=== PATIENT | female | born 1950 | race Caucasian/White ===

== ENCOUNTER 2017-11-27 11:05 | Outpatient (CLI) | payer OTHER | END 2017-11-27 11:22 | disposition home or self-care (01) | LOC: LAB 11:05 → EKG 11:05 | DX: I10 Essential (primary) hypertension (principal) ==

== ENCOUNTER 2017-12-05 06:10 | Day surgery (SDC) | payer OTHER | END 2017-12-05 11:06 | disposition home or self-care (01) | LOC: CIR.AMB 06:10 | DX: G56.02 Carpal tunnel syndrome, left upper limb (principal) ==

== ENCOUNTER 2025-06-17 07:00 | Day surgery (SDC) | payer OTHER ==
[2025-06-11 09:05] VITALS: BP 170/70
[2025-06-11 09:05] LABS: BASO % 0.3 % (0.1-1.2); EOS # 0.41 (0.04-0.54); EOS % 4.4 % (0.7-7.0); LYMPH # 2.16 (1.18-3.74); LYMPH % 23.4 % (19.3-53.1); MEAN PLATELET VOLUME 9.50 fl (9.4-12.4); MONO # 0.88 (0.24-0.82); MONO % 9.5 % (4.7-12.5); NEUT # 5.72 (1.56-6.13); NEUT % 62.0 % (34.0-71.1); RED CELL DISTRIBUTION WIDTH 13.7 % (11.6-14.4)
[2025-06-11 09:11] LABS: URINE APPEARANCE Clear; URINE BILIRRUBIN Negative (NEGATIVE); URINE BLOOD Small; URINE COLOR Yellow; URINE KETONE Negative (NEGATIVE); URINE LEUKOCYTE Small; URINE NITRATE Negative; URINE PROTEIN 30 (NEGATIVE); URINE UROBILINOGEN 0.2 E.U./dl
[2025-06-11 09:15] LABS: URINE BACTERIA 62.3 uL (0.0-1933); URINE EPITHELIAL CELLS 21.8 uL (0.0-38.8); URINE RBC 34.4 uL (0.0-20.8); URINE WBC 211.1 uL (0.0-23.2)
[2025-06-11 09:33] LABS: URINE CAST 0.14 uL (0.0-1.40); URINE GLUCOSE >=1000 MG/DL (NEGATIVE)
[2025-06-11 09:35] LABS: INR 0.99
[~2025-06-17] VITALS: Ht 157.5 cm; Wt 50.3 kg
[~2025-06-17 07:00] MED LIST: AMLODIPINE-OLM1 EAC2; LANTUS SOL100 UNIT/1; LEVOTHYROXINE25 MCG PO; LIPITOR40 M1 PO; TOPROL XL25 M1 PO; XARELTO10 MG
[2025-06-17] MEDS ORDERED: CEFAZOLIN SODIUM 1,000 MG VIAL ONE (07:40)
== END 2025-06-17 14:35 | disposition home or self-care (01) ==
LOC: CIR.AMB 07:00
PROVIDERS: ATTEND Orthopaedic Surgery Hand Surgery
DX: M18.11 Unilateral primary osteoarthritis of first carpometacarpal joint, right hand (principal); M19.041 Primary osteoarthritis, right hand